=== PATIENT | male | born 1960 | race Caucasian/White ===

== ENCOUNTER 2021-03-01 19:24 | Emergency (ER) | payer OTHER ==
[2021-03-01 19:31] LABS: Glucose,Whole Blood 153 mg/dL (75-99)
--- NOTE | 2021-03-01 19:44 | ED ---
General Adult HPI - General Stated complaint: CPR Time Seen by Provider: 03/01/21 19:39 - History of Present Illness Initial comments: Dictation was produced using [employer] dictation software. please excuse any grammatical, word or spelling errors. Chief Complaint: 61-year-old male presents with cardiac arrest. History of Present Illness: Patient is a 61-year-old male with unknown medical history. Presents with cardiac arrest. According to EMS patient had a cardiac arrest at approximately 6:40 PM. Patient was at home with a friend who witnessed the arrest CPR was started immediately. EMS arrived on scene and continued cardiopulmonary resuscitation. He did achieve return of spontaneous circulation starting at 7:09 PM. He had a pulse for approximately 3 minutes when he went PA and asystole again. EMS reports that they were told that perhaps patient had history of heart problems. Unable to obtain ROS secondary to mental status. PHYSICAL EXAM: General Impression: Unresponsive, pale HEENT: Normocephalic atraumatic, pupils 4 mm and nonreactive Cardiovascular: Pulseless Chest: Bilateral breath sounds with bagging Abdomen: abdomen soft, non-tender, non-distended, no organomegaly Neurological: Obtunded ED course: 61-year-old male presents with cardiac arrest. According EMS patient was a witnessed arrest starting at around 6:40 PM. He achieved return of spontaneous circulation at 709. He then lost his pulse again at 7:12 PM. Patient arrived to us and trauma bay #2. CPR was continued. Her neck monitor showed a variation between asystole, PA and possible V. fib. Upon arrival patient was pulseless. Patient had already received 5 rounds of epinephrine, bolus of amiodarone, IV fluids. No further epi's were administered. CPR was continued for several more minutes. Dual sequential defibrillation was at tempted on multiple occasions with no return of spontaneous circulation. [id number] bedside echocardiogram was performed showing cardiac standstill incompatible with life. Patient was pronounced at 7:37 PM. Chart review was performed. There is no previous medical records for the patient. We did get in contact with patient's brother [place] who lives 2 hours away. He was asked to come to the emergency department to make some decisions on patient's behalf. He states he did not want to come to the emergency room less he was told what was going on the patient. The wound was notified that his brother . He was asked, behalf of the patient to make some arrangements however he refused. Case is discussed with medical surgical tech. - Related Data Allergies Allergy/AdvReac Type Severity Reaction Status Date / Time Unable to Assess Allergy Verified 03/01/21 19:46 Review of Systems ROS Statement: Those systems with pertinent positive or pertinent negative responses have been documented in the HPI. ROS Other: All systems not noted in ROS Statement are negative. Course Vital Signs 03/01/21 19:41 Pulse Rate 0 L Respiratory 0 L Rate Blood Pressure 0/0 O2 Sat by Pulse 0 L Oximetry Medical Decision Making - Lab Data Lab Results 03/01/21 Range/Units 19:29 POC Glucose (mg/dL) 153 H (75-99) mg/dL POC Glu Therapist Phys ID Gasper Mtz Disposition Clinical Impression: Cardiac arrest Disposition: Referrals: None,Stated [Primary Care Provider] - 1-2 days Preliminary Cause of : Cardiac arrest
[2021-03-01 19:46] VITALS: BP 0/0; PULSE 0; RESP 0
== END 2021-03-01 21:40 | disposition expired ==
LOC: EC 19:24
DX: I46.9 Cardiac arrest, cause unspecified (principal)
CPT/HCPCS: 36415; 92950; 99285